=== PATIENT | female | born 1970 | race Caucasian/White ===

== ENCOUNTER 2016-09-01 19:31 | Emergency (ER) | payer MEDICAID ==
[~2016-09-01 19:31] MED LIST: CLINDAMYCIN HC300 MG PO; LAC PO; LEVOFLOXACIN750 M1 PO
[2016-09-01 20:48] LABS: PLATELET COUNT 236 x10^3mcL (130-400); RED CELL DISTRIBUTION WIDTH 14.1 % (11.5-14.5)
[2016-09-01 20:51] LABS: BASOPHIL % 2.6 % (0-2)
[2016-09-01 22:00] LABS: CALCIUM 8.5 mg/dL (8.5-10.1); CARBON DIOXIDE 29.5 mmol/L (21-32); CHLORIDE SERUM 107 mmol/L (98-107); CREATININE SERUM 0.6 mg/dL (0.6-1.0); GFR1 > 60 mL/min; GLUCOSE SERUM 90 mg/dL (74-106); POTASSIUM SERUM 4.4 mmol/L (3.5-5.1); SODIUM SERUM 142 mmol/L (136-145)
[2016-09-01 22:04] LABS: ALBUMIN 3.9 g/dL (3.4-5.0); ALKALINE PHOSPHATASE 77 U/L (46-116); ALT/SGPT 20 U/L (14-59); AMYLASE 56 U/L (25-115); AST/SGOT 20 U/L (15-37); BILIRUBIN TOTAL 0.29 mg/dL (0.20-1.00); LIPASE 246 IU/L (73-393)
[2016-09-01 22:05] LABS: TOTAL PROTEIN, SERUM 3.8 g/dL (6.4-8.2)
[2016-09-01 23:02] VITALS: BP 110/64
== END 2016-09-01 23:02 | disposition home or self-care (01) ==
LOC: ED 19:31
PROVIDERS: Emergency Medicine
DX: S63.612A Unspecified sprain of right middle finger, initial encounter (principal); R10.13 Epigastric pain; R11.0 Nausea; X58.XXXA Exposure to other specified factors, initial encounter; Y93.89 Activity, other specified; Y99.8 Other external cause status; Y92.89 Other specified places as the place of occurrence of the external cause

== ENCOUNTER 2017-10-15 15:46 | Emergency (ER) | payer MEDICAID ==
[~2017-10-15] VITALS: Ht 167.6 cm; Wt 59.9 kg
[2017-10-15 17:41] VITALS: BP 116/84
== END 2017-10-15 17:41 | disposition home or self-care (01) ==
LOC: ED 15:46
DX: N39.0 Urinary tract infection, site not specified (principal); K59.00 Constipation, unspecified; J30.9 Allergic rhinitis, unspecified

== ENCOUNTER 2019-04-10 17:44 | Emergency (ER) | payer SELFPAY ==
[~2019-04-10] VITALS: Ht 167.6 cm; Wt 59.9 kg
[2019-04-10 18:57] VITALS: Ht 167.6 cm; Wt 59.9 kg
[2019-04-10 20:20] VITALS: BP 135/72
== END 2019-04-10 20:20 | disposition home or self-care (01) ==
LOC: ED 17:44
DX: S51.832A Puncture wound without foreign body of left forearm, initial encounter (principal); W54.0XXA Bitten by dog, initial encounter; Y93.89 Activity, other specified; Y92.89 Other specified places as the place of occurrence of the external cause; Y99.8 Other external cause status
CPT/HCPCS: 90715

== ENCOUNTER 2019-07-13 16:09 | Emergency (ER) | payer SELFPAY ==
[~2019-07-13] VITALS: Ht 167.6 cm; Wt 59.0 kg
[2019-07-13 16:17] VITALS: Ht 167.6 cm; Wt 59.0 kg
[2019-07-13 17:46] LABS: BASOPHIL % 1.3 % (0-2); PLATELET COUNT 201 x10^3mcL (130-400); RED CELL DISTRIBUTION WIDTH 13.4 % (11.5-14.5)
[2019-07-13 17:48] LABS: CALCIUM 8.4 mg/dL (8.5-10.1); CARBON DIOXIDE 26.9 mmol/L (21-32); CHLORIDE SERUM 103 mmol/L (98-107); CREATININE SERUM 0.6 mg/dL (0.6-1.0); GFR1 > 60 mL/min; GLUCOSE SERUM 90 mg/dL (74-106); POTASSIUM SERUM 3.7 mmol/L (3.5-5.1); SODIUM SERUM 138 mmol/L (136-145)
[2019-07-13 20:16] VITALS: BP 118/66
== END 2019-07-13 20:16 | disposition home or self-care (01) ==
LOC: ED 16:09
PROVIDERS: Emergency Medicine
DX: N93.9 Abnormal uterine and vaginal bleeding, unspecified (principal); R10.2 Pelvic and perineal pain
CPT/HCPCS: 36415; J1885